=== PATIENT | male | born 1985 | race Caucasian/White ===

== ENCOUNTER 2019-03-05 13:45 | Emergency (ER) | payer MEDICAID ==
[~2019-03-05] VITALS: Wt 63.7 kg
[2019-03-05 13:54] VITALS: BP 149/86; PULSE 84; RESP 18
[2019-03-05] MEDS ORDERED: KETOROLAC 30 MG INJ IM STA (15:37)
[2019-03-05] MEDS ORDERED: CYCL10TA7 PO (16:18)
[2019-03-05] MEDS ORDERED: IBUP800T48 PO (16:18)
--- NOTE | 2019-03-05 16:20 | ERD ---
ER Documentation Chief Complaint Chief Complaint L flank pain x3d. no dysuria, no VD. R leg tingling today no trauma HPI 34-year-old male presents with bilateral sided mid back pain that he has had for about 3 days. No dysuria hematuria frequency. No fever. No nausea or vomiting. Has not taken medication for symptoms. Ambulatory. No trauma. ROS All systems reviewed and are negative except as per history of present illness. Medications Home Meds Active Scripts Ibuprofen* (Motrin*) 800 Mg Tab, 800 MG PO Q6, #30 TAB Prov:STEPHAN BELLE PA-C 03/05/19 Cyclobenzaprine Hcl* (Cyclobenzaprine Hcl*) 10 Mg Tablet, 10 MG PO BID, #15 TAB Prov:STEPHAN BELLE PA-C 03/05/19 Allergies Allergies: Coded Allergies: Penicillins (Verified Allergy, Unknown, 03/05/19) PMhx/Soc Medical and Surgical Hx: pt denies Medical Hx, pt denies Surgical Hx Hx Alcohol Use: No Hx Substance Use: No Hx Tobacco Use: No Smoking Status: Never smoker FmHx Family History: No diabetes Physical Exam Vitals Vital Signs Date Temp Pulse Resp B/P (MAP) Pulse Ox O2 O2 Flow FiO2 Time Delivery Rate 03/05/19 99.0 84 18 149/86 97 13:54 (107) Physical Exam Const: No acute distress Head: Atraumatic Eyes: Normal Conjunctiva ENT: Normal External Ears, Nose and Mouth. Neck: Full range of motion. No meningismus. Resp: Clear to auscultation bilaterally Cardio: Regular rate and rhythm, no murmurs Back Exam: Compartments: Soft Motor: Normal flexion and extension of bilateral hip/knee/ankle/foot Sensation: Intact to light touch throughout Bones: No midline TTP Results 24 hrs Laboratory Tests Test 03/05/19 16:14 Bedside Urine pH (LAB) 5.5 Bedside Urine Protein (LAB) Negative Bedside Urine Glucose (UA) Negative Bedside Urine Ketones (LAB) 1+ Bedside Urine Blood Trace-lysed Bedside Urine Nitrite (LAB) Negative Bedside Urine Leukocyte Esterase (L Negative Current Medications Medications Dose Sig/Uzair Start Time Status Last (Trade) Ordered Route PRN Stop Time Admin Dose Reason Admin Ketorolac 30 mg ONCE STAT 03/05/19 DC 03/05/19 Tromethamine IM 15:37 03/05/19 15:45 (Toradol) 15:38 Procedures/MDM The differential diagnosis includes but is not limited to muscle strain, ligament strain, contusion, arthritis, discogenetic disease, non- musculoskeletal, cauda equina syndrome, cord compression, abscess and others. No red flags including bowel or bladder incontinence or saddle anesthesia. Patient is ambulatory normal physical exam. No trauma. Toradol given here. Urine dip is negative. Discharged with ibuprofen and Flexeril. Patient counseled regarding my diagnostic impression and care plan. Prior to discharge all questions answered. Pt agrees with treatment plan and understands strict return precautions. Pt is instructed to follow up with primary care provider within 24-48 hours. Precautionary instructions provided including instructions to return to the ER if not improving or for any worsening or changing symptoms or concerns. Departure Diagnosis: Primary Impression: Back pain Condition: Stable Patient Instructions: Back Pain (Acute Or Chronic) Additional Instructions: Llame al doctor MAANA y jason bryce KAITLIN PARA DENTRO DE 1-2 PORTILLO.Dgale a la secr etaria que nosotros le instruimos hacer esta kaitlin.Avise o llame si quevedo condicin se empeora antes de la kaitlin. Regresa aqui si peor o no mejor. STEPHAN BELLE PA-C March 05, 2019 16:20
== END 2019-03-05 16:39 | disposition home or self-care (01) ==
LOC: FTE 13:45
DX: M54.9 Dorsalgia, unspecified (principal)
CPT/HCPCS: 81003; 96372; J1885; Z7502